=== PATIENT | female | born 1960 | race African-American/Black ===

== ENCOUNTER 2017-10-27 09:42 | Emergency (ER) | payer MEDICARE, OTHER ==
[2017-10-27 10:09] LABS: Hemoglobin 10.4 g/dL (12.0-16.0); Mean Corpuscular HGB CONC 33.5 g/dL (32.0-36.0); Mean Corpuscular Hemoglobin 29.9 pg (27.0-31.0); Mean Corpuscular Volume 89.4 fl (81.0-99.0); Platelet Count 123 thou/uL (130-400); Red Blood Cell (RBC) Count 3.47 mill/uL (4.20-5.40); White Blood Cell (WBC) Count 4.2 thou/uL (4.8-10.8)
[2017-10-27 10:24] LABS: #Lymphocytes 1.8 thou/uL (1.20-3.40); #Monocytes 0.4 thou/uL (0.11-0.59); #Neutrophils 1.9 thou/uL (1.40-6.50); %Eosinophils 0.7 % (0.0-10.0); %Lymphocytes 43.5 % (21.0-51.0); %Monocytes 10.5 % (0.0-10.0); %Neutrophils 45.3 % (42.0-75.0)
[2017-10-27 10:30] LABS: ALT (SGPT) 13 U/L (8-55); AST (SGOT) 20 U/L (5-34); Albumin 3.5 g/dL (3.5-5.0); Alkaline Phosphatase 126 U/L (40-150); Anion Gap 11 mmol/L (10-20); BUN (Urea Nitrogen) 12 mg/dL (9.8-20.1); Bilirubin, Total 1.5 mg/dL (0.2-1.2); CK (CPK) 50 U/L (29-168); Calc. Creatinine Clearance 0 mL/min (70-130); Calcium 9.8 mg/dL (7.8-10.44); Carbon Dioxide 26 mmol/L (22-29); Chloride 107 mmol/L (98-107); Estimated GFR-MDRD Greater than 90; Globulin 3.7 g/dL (2.4-3.5); Glucose 155 mg/dL (70-105); Potassium 3.6 mmol/L (3.5-5.1); Protein, Total 7.2 g/dL (6.0-8.3); Sodium 140 mmol/L (136-145)
[2017-10-27 10:32] LABS: CKMB 0.3 ng/mL (0-6.6); Troponin I Less than 0.010 ng/mL (< 0.028)
[2017-10-27] MEDS ORDERED: Lisinopril 10 MG TAB ONE (10:36)
[2017-10-27] MEDS ORDERED: Aspirin 325 MG TAB ONE (10:36)
[2017-10-27 10:39] LABS: PLT Morphology Comment Appears Adequate; RBC Morphology Normal
--- NOTE | 2017-10-27 10:53 | RAD ---
CHEST 1 VIEW: HISTORY: Chest pain. COMPARISON: 01/06/16. FINDINGS: Cardiac silhouette is magnified and upper limits of normal in size. Mediastinum midline with aortic calcification and postoperative changes. Calcified granulomata are consistent with healed granulomat ous disease. No lobar consolidation or evidence of pneumothorax. IMPRESSION: No active cardiopulmonary abnormalities are demonstrated. POS: [facility]
== END 2017-10-27 11:22 | disposition home or self-care (01) ==
LOC: ERS 09:42
DX: R06.02 Shortness of breath (principal); Z76.0 Encounter for issue of repeat prescription; F41.9 Anxiety disorder, unspecified; F32.9 Major depressive disorder, single episode, unspecified; E05.90 Thyrotoxicosis, unspecified without thyrotoxic crisis or storm; I10 Essential (primary) hypertension; Z79.82 Long term (current) use of aspirin; Z79.899 Other long term (current) drug therapy
CPT/HCPCS: 71045; 80053; 82550; 82553; 84443; 84484; 85025; 93005

== ENCOUNTER 2018-03-06 10:33 | Outpatient (CLI) | payer MEDICARE ==
--- NOTE | 2018-03-06 12:35 | ULT ---
ABDOMINAL ULTRASOUND: DATE: 03/06/2018. PROVIDED CLINICAL HISTORY: Nausea, vomiting, and periumbilical pain. FINDINGS: Visualized abdominal aorta, IVC, and pancreas appear normal. The liver demonstrates no mass or intra hepatic biliary ductal dilatation. The common duct is not evaluated. Multiple shadowing mobile echo genic foci are seen within the gallbladder lumen compatible with gallstones. No wall thickening or p ericholecystic fluid evident. Kidneys demonstrate no evidence for hydronephrosis or mass. The splee n is not enlarged and demonstrates no significant abnormality. IMPRESSION: Cholelithiasis. POS: [facility]
== END 2018-03-06 10:34 | disposition home or self-care (01) ==
LOC: BICULT 10:33
PROVIDERS: ATTEND Internal Medicine Gastroenterology
DX: R11.2 Nausea with vomiting, unspecified (principal); R10.33 Periumbilical pain; R63.4 Abnormal weight loss; K80.20 Calculus of gallbladder without cholecystitis without obstruction
CPT/HCPCS: 76700

== ENCOUNTER 2018-03-12 11:26 | Outpatient (CLI) | payer MEDICARE ==
[2018-03-12 14:25] LABS: Mean Corpuscular HGB CONC 32.4 g/dL (32.0-36.0); Mean Corpuscular Hemoglobin 29.3 pg (27.0-31.0); Mean Corpuscular Volume 90.5 fL (78.0-98.0); Mean Platelet Volume 9.3 fL (7.4-10.4); Platelet Count 192 thou/uL (130-400); RBC Distribution Width 12.4 % (11.5-14.5); Red Blood Cell (RBC) Count 4.08 mill/uL (4.20-5.40); White Blood Cell (WBC) Count 4.6 thou/uL (4.8-10.8)
[2018-03-12 14:37] LABS: ALT (SGPT) 9 U/L (8-55); AST (SGOT) 16 U/L (5-34); Albumin 4.1 g/dL (3.5-5.0); Alkaline Phosphatase 134 U/L (40-150); Anion Gap 12 mmol/L (10-20); BUN (Urea Nitrogen) 11 mg/dL (9.8-20.1); Bilirubin, Direct 0.4 mg/dL (0.1-0.3); Bilirubin, Total 1.1 mg/dL (0.2-1.2); Calc. Creatinine Clearance 0 mL/min (70-130); Calcium 9.8 mg/dL (7.8-10.44); Carbon Dioxide 29 mmol/L (22-29); Chloride 104 mmol/L (98-107); Estimated GFR-MDRD Greater than 90; Glucose 80 mg/dL (70-105); Potassium 3.5 mmol/L (3.5-5.1); Protein, Total 8.4 g/dL (6.0-8.3); Sodium 141 mmol/L (136-145)
[2018-03-12 15:13] LABS: Eosinophils 1 % (0-10); Lymphocytes 58 % (21-51); MDiff Complete? YES; Monocytes 7 % (0-10); Neutrophil 33 % (42-75); PLT Morphology Comment Appears Adequate; RBC Morphology Normal; Reactive Lymphocytes 1 % (0-10)
== END 2018-03-12 11:27 | disposition home or self-care (01) ==
LOC: LABBT 11:26
PROVIDERS: ATTEND Surgery
DX: Z01.818 Encounter for other preprocedural examination (principal); K80.20 Calculus of gallbladder without cholecystitis without obstruction
CPT/HCPCS: 80048; 80076; 85025; 93005; 93010

== ENCOUNTER 2018-03-19 09:23 | Day surgery (SDC) | payer MEDICARE ==
[2018-03-12 11:42] VITALS: BMI 23.3
[2018-03-19] MEDS ORDERED: CEFAZOLIN 2 GM/50 ML BAG ONE (10:03)
[2018-03-19] MEDS ORDERED: Bupivacaine/Epinephrine 0.25% 30 ML VIAL ONE (11:10)
[2018-03-19] MEDS ORDERED: Midazolam HCl 2 mg/2 ml Vial ONE (11:35)
[2018-03-19] MEDS ORDERED: Fentanyl 250 MCG/5 ML VIAL ONE (11:35)
[2018-03-19] MEDS ORDERED: HYDROcodone/Acetaminophen 5/325 mg Tablet ONE (14:18)
--- NOTE | 2018-03-19 21:50 | OP ---
DATE OF PROCEDURE: 03/19/2018 PREOPERATIVE DIAGNOSIS: Symptomatic gallstones. POSTOPERATIVE DIAGNOSIS: Symptomatic gallstones. PROCEDURE: Laparoscopic cholecystectomy. SURGEON: Nadeem Benjamin M.D. ANESTHESIA: General. ESTIMATED BLOOD LOSS: Minimal. COMPLICATIONS: None. SPECIMEN: None. FINDINGS: There were some significant adhesions in the area of the umbilicus. Care was taken to be sure there was no inadvertent enterotomy made at the end of the procedure. There was no obvious inju ry seen. TECHNIQUE: The patient was taken to the operating room and placed supine on the table. After genera l anesthetic was obtained, the abdomen was shaved, prepped, and draped in a sterile fashion. Curved incision made below the umbilicus. Cautery was used to dissect down to and score the fascia. Abdomi nal cavity entered bluntly using a Casandra clamp. Montoya trocar was placed and high flow pneumoperiton eum was obtained. An upper midline 5-mm port and 2 right upper quadrant 5-mm ports were placed under direct camera visualization. The gallbladder was extracted from the gallbladder fossa. The periton eum was opened anteriorly and posteriorly. Critical view triangle was seen showing only the cystic du ct and cystic artery branching from medial to lateral and no other branching structures. Two clips w ere placed proximally and one distally and cystic duct cut using laparoscopic scissors. Cystic arter y was taken in the same way. Cautery was then used to dissect the gallbladder out of the gallbladder fossa. Gallbladder was placed in an Endo catch bag and brought out through the Lucas. There were significant dense adhesions in the area of the umbilicus and the loop of small intestine was fused ju st below where the umbilical incision was made carefully. Sharp dissection was used to take down the small intestine in this area. It was dissected off the back side of the peritoneum revealing no obv ious enterotomy or injury. A finger was placed into the fascial opening again with no obvious injury to the intestine. There was no leakage of enteric contents. The PDS suture previously placed was t ied down under direct vision and did not appear to involve the wall of the small intestine either. A ll port sites are infiltrated using local anesthetic and removed under direct visualization without b leeding. All incisions were irrigated and closed using 4-0 Monocryl and Dermabond. The patient was en route to recovery in stable condition. All instrument counts, needle counts, lap counts were sis ect.
== END 2018-03-19 14:49 | disposition home or self-care (01) ==
LOC: SDC 09:23
PROVIDERS: ATTEND Surgery
PROC: 0FT44ZZ Resection of Gallbladder, Percutaneous Endoscopic Approach (ICD-10-PCS; principal; 2018-03-19)
DX: K80.10 Calculus of gallbladder with chronic cholecystitis without obstruction (principal); I50.9 Heart failure, unspecified; E05.90 Thyrotoxicosis, unspecified without thyrotoxic crisis or storm; I25.10 Atherosclerotic heart disease of native coronary artery without angina pectoris; I47.1 Supraventricular tachycardia; M32.9 Systemic lupus erythematosus, unspecified; Z95.1 Presence of aortocoronary bypass graft; Z79.82 Long term (current) use of aspirin; Z79.899 Other long term (current) drug therapy; Z88.5 Allergy status to narcotic agent
CPT/HCPCS: 88304; J2250; J3010

== ENCOUNTER 2023-02-01 16:07 | Observation (INO) | payer MEDICARE, SELFPAY ==
[2023-02-01 18:06] LABS: #Monocytes 0.4 thou/uL (0.11-0.59); #Neutrophils 5.3 thou/uL (1.40-6.50); %Basophils 0.1 % (0.0-1.0); %Eosinophils 0.1 % (0.0-10.0); %Lymphocytes 18.3 % (21.0-51.0); %Monocytes 5.7 % (0.0-10.0); %Neutrophils 75.7 % (42.0-75.0); Hematocrit 38.3 % (36.0-47.0); Hemoglobin 12.9 g/dL (12.0-16.0); Mean Corpuscular HGB CONC 33.7 g/dL (32.0-36.0); Mean Corpuscular Hemoglobin 31.6 pg (27.0-31.0); Mean Corpuscular Volume 93.9 fl (78.0-98.0); Mean Platelet Volume 11.5 fL (7.4-10.4); Platelet Count 169 10x3/uL (130-400); RBC Distribution Width 12.5 % (11.5-14.5); Red Blood Cell (RBC) Count 4.08 mill/uL (4.20-5.40); White Blood Cell (WBC) Count 7.1 10x3/uL (4.8-10.8)
[2023-02-01 18:32] LABS: ALT (SGPT) 7 U/L (8-55); AST (SGOT) 14 U/L (5-34); Alkaline Phosphatase 76 U/L (40-110); Anion Gap 13 mmol/L (10-20); BUN (Urea Nitrogen) 34 mg/dL (9.8-20.1); Bilirubin, Total 0.7 mg/dL (0.2-1.2); Calc. Creatinine Clearance 0 mL/min (70-130); Calcium 9.5 mg/dL (7.8-10.44); Carbon Dioxide 25 mmol/L (23-31); Chloride 103 mmol/L (98-107); Estimated GFR 25; Globulin 3.8 g/dL (2.4-3.5); Glucose 116 mg/dL (80-115); Magnesium 1.8 mg/dL (1.6-2.6); Potassium 4.4 mmol/L (3.5-5.1); Protein, Total 7.8 g/dL (5.8-8.1); Sodium 137 mmol/L (136-145)
[2023-02-01 18:37] LABS: Troponin I 0.014 ng/mL (< 0.028)
[2023-02-01] MEDS ORDERED: Ondansetron ODT 4 MG TAB PO PRN (21:14)
[2023-02-01] MEDS ORDERED: Acetaminophen 325 MG TAB PO PRN (21:14)
[2023-02-01] MEDS ORDERED: Ondansetron PF 4 MG/2 ML Vial IVP PRN (21:14)
[2023-02-01] MEDS ORDERED: Acetaminophen 650 MG Suppository PR PRN (21:14)
[2023-02-01 21:22] LABS: Troponin I 0.014 ng/mL (< 0.028)
[2023-02-01 23:27] VITALS: BMI 22.2
[2023-02-01] MEDS: Sodium Chloride 0.9% 1,000 ML IV SCH (23:50)
[2023-02-01] MEDS ORDERED: hydrALAZINE 20 MG/ML VIAL SLOW IVP PRN (23:56)
[2023-02-02 01:49] LABS: Troponin I 0.017 ng/mL (< 0.028)
[2023-02-02 05:11] LABS: #Monocytes 0.5 thou/uL (0.11-0.59); #Neutrophils 3.1 thou/uL (1.40-6.50); %Basophils 0.2 % (0.0-1.0); %Eosinophils 0.5 % (0.0-10.0); %Lymphocytes 38.4 % (21.0-51.0); %Monocytes 7.9 % (0.0-10.0); %Neutrophils 52.8 % (42.0-75.0); Hematocrit 33.8 % (36.0-47.0); Hemoglobin 11.3 g/dL (12.0-16.0); Mean Corpuscular HGB CONC 33.4 g/dL (32.0-36.0); Mean Corpuscular Hemoglobin 32.2 pg (27.0-31.0); Mean Corpuscular Volume 96.3 fl (78.0-98.0); Mean Platelet Volume 11.2 fL (7.4-10.4); Platelet Count 161 10x3/uL (130-400); RBC Distribution Width 12.6 % (11.5-14.5); Red Blood Cell (RBC) Count 3.51 mill/uL (4.20-5.40); White Blood Cell (WBC) Count 5.8 10x3/uL (4.8-10.8)
[2023-02-02 05:22] LABS: Bilirubin Negative (Negative); Blood, Urine Negative (Negative); Clarity Clear (Clear); Glucose, Urine (Dipstick) Normal (Negative); Ketone, Urine Negative (Negative); Leukocyte Negative Leu/uL (Negative); Nitrite Negative (Negative); Protein, Urine (Dipstick) Negative (Neg-Trace); RBC/HPF 0-3 HPF (0-3); Specific Gravity, Urine 1.013 (1.002-1.036); Squamous Epithelial 0-3 HPF (0-3); Urobilinogen Normal mg/dL (Less than 2); WBC/HPF 0-3 HPF (0-3)
[2023-02-02 05:23] LABS: Bacteria/HPF Rare-Few HPF (None Seen)
[2023-02-02 05:44] LABS: Anion Gap 10 mmol/L (10-20); BUN (Urea Nitrogen) 33 mg/dL (9.8-20.1); Calc. Creatinine Clearance 38 mL/min (70-130); Calcium 8.8 mg/dL (7.8-10.44); Carbon Dioxide 26 mmol/L (23-31); Chloride 107 mmol/L (98-107); Estimated GFR 37; Glucose 110 mg/dL (80-115); Potassium 3.9 mmol/L (3.5-5.1); Sodium 139 mmol/L (136-145)
[2023-02-02 08:25] VITALS: TEMP 97.7
[2023-02-02] MEDS ORDERED: Aspirin 325 MG TAB PO SCH (09:00)
[2023-02-02] MEDS: Sodium Chloride 0.9% 1,000 ML IV SCH (09:54)
[2023-02-02] MEDS ORDERED: Lidocaine 1% PF 5 ML VIAL ONE (13:05)
[2023-02-02] MEDS ORDERED: Lidocaine 1% w/Epinephrine 1:100K 20 ML VIAL ONE (13:08)
[2023-02-02 16:51] VITALS: BP 187/81
[2023-02-02] MEDS ORDERED: Atorvastatin Calcium 40 MG TAB PO SCH (21:00)
== END 2023-02-02 17:05 | disposition home or self-care (01) ==
LOC: ERS 16:07 → 2SW 19:53
PROVIDERS: ADMIT Student in an Organized Health Care Education/Training Program; ATTEND Internal Medicine
PROC: 0JH602Z Insertion of Monitoring Device into Chest Subcutaneous Tissue and Fascia, Open Approach (ICD-10-PCS; principal; 2023-02-01)
DX: R55 Syncope and collapse (principal); I11.0 Hypertensive heart disease with heart failure; I50.1 Left ventricular failure, unspecified; E03.9 Hypothyroidism, unspecified; R00.1 Bradycardia, unspecified; I44.7 Left bundle-branch block, unspecified; Z79.82 Long term (current) use of aspirin; Z79.899 Other long term (current) drug therapy; Z90.710 Acquired absence of both cervix and uterus; Z95.2 Presence of prosthetic heart valve; Z88.5 Allergy status to narcotic agent; Z90.721 Acquired absence of ovaries, unilateral
CPT/HCPCS: 33285; 70450; 71045; 80048; 80053; 81001; 83735; 84484 ×3; 85025 ×2; 93005; 93880; 96360; 96361; 96374; 99285; C1764; G0378 ×3; J0360; 36415; J7050

== ENCOUNTER 2023-11-30 13:37 | Day surgery (SDC) | payer MEDICARE ==
[2023-11-30] MEDS ORDERED: CEFAZOLIN 2 GM VIAL ONE (14:29)
[2023-11-30] MEDS ORDERED: Gentamicin 80 MG/2 ML VIAL ONE (14:29)
[2023-11-30] MEDS ORDERED: CEFAZOLIN 1 GM VIAL ONE (14:29)
[2023-11-30 14:55] LABS: #Basophils Less than 0.03 10x3/uL (0.0-0.2); %Basophils 0.2 % (0.0-1.0); %Eosinophils 3.1 % (0.0-10.0); %Monocytes 7.4 % (0.0-10.0); %Neutrophils 41.3 % (42.0-75.0); Hematocrit 40.7 % (36.0-47.0); Hemoglobin 13.5 g/dL (12.0-16.0); Mean Corpuscular HGB CONC 33.2 g/dL (32.0-36.0); Mean Corpuscular Hemoglobin 30.9 pg (27.0-31.0); Mean Corpuscular Volume 93.1 fL (78.0-98.0); Mean Platelet Volume 11.3 fL (7.4-10.4); Platelet Count 187 10x3/uL (130-400); RBC Distribution Width 13.5 % (11.5-14.5); Red Blood Cell (RBC) Count 4.37 mill/uL (4.20-5.40)
[2023-11-30 15:20] LABS: Anion Gap 15 mmol/L (10-20); BUN (Urea Nitrogen) 16 mg/dL (9.8-20.1); Calc. Creatinine Clearance 0 mL/min (70-130); Calcium 9.8 mg/dL (7.8-10.44); Carbon Dioxide 27 mmol/L (23-31); Chloride 103 mmol/L (98-107); Estimated GFR 76; Glucose 94 mg/dL (80-115); Potassium 4.9 mmol/L (3.5-5.1); Sodium 140 mmol/L (136-145)
[2023-11-30] MEDS ORDERED: Lidocaine 1% (PF) 30 ML VIAL ONE (15:44)
[2023-11-30] MEDS ORDERED: Midazolam HCl 2 mg/2 ml Vial ONE (15:44)
[2023-11-30] MEDS ORDERED: hydrALAZINE 20 MG/ML VIAL ONE (15:57)
== END 2023-11-30 20:45 | disposition home or self-care (01) ==
LOC: SDC 13:37
PROVIDERS: ATTEND Internal Medicine Cardiovascular Disease
PROC: 0JH606Z Insertion of Pacemaker, Dual Chamber into Chest Subcutaneous Tissue and Fascia, Open Approach (ICD-10-PCS; principal; 2023-11-30)
DX: I44.2 Atrioventricular block, complete (principal); I48.92 Unspecified atrial flutter; I11.0 Hypertensive heart disease with heart failure; I50.30 Unspecified diastolic (congestive) heart failure; I44.7 Left bundle-branch block, unspecified; R00.1 Bradycardia, unspecified; E03.9 Hypothyroidism, unspecified; M32.10 Systemic lupus erythematosus, organ or system involvement unspecified; D64.9 Anemia, unspecified; Z90.710 Acquired absence of both cervix and uterus; Z98.890 Other specified postprocedural states; Z88.5 Allergy status to narcotic agent; Z79.82 Long term (current) use of aspirin; Z79.899 Other long term (current) drug therapy
CPT/HCPCS: 33208; 33286; 71045; 80048; 85025; C1785; C1898 ×2; J0360; J0690; J1580; J2001; J2250; 99152; 99153

== ENCOUNTER 2024-01-27 19:02 | Inpatient (IN) | payer MEDICARE ==
[2024-01-27 19:38] VITALS: BMI 25.7
[2024-01-27] MEDS ORDERED: Ondansetron PF 4 MG/2 ML Vial IVP PRN (20:28)
[2024-01-27] MEDS ORDERED: Ondansetron ODT 4 MG TAB PO PRN (20:28)
[2024-01-27] MEDS ORDERED: Acetaminophen 650 MG Suppository PR PRN (20:28)
[2024-01-27] MEDS: Lisinopril 20 MG TAB PO SCH (21:10)
[2024-01-27] MEDS: Famotidine 20 MG TAB PO SCH (21:10)
[2024-01-27] MEDS: Acetaminophen 325 MG TAB PO PRN (21:10)
[2024-01-27] MEDS: Atorvastatin Calcium 40 MG TAB PO SCH (21:10)
[2024-01-27] MEDS: Famotidine/PF 20 mg/2ml Vial SLOW IVP SCH (21:11)
[2024-01-27 21:42] LABS: #Basophils Less than 0.03 10x3/uL (0.0-0.2); %Basophils 0.1 % (0.0-1.0); %Lymphocytes 37.9 % (21.0-51.0); %Monocytes 5.2 % (0.0-10.0); %Neutrophils 55.5 % (42.0-75.0); Hematocrit 38.5 % (36.0-47.0); Hemoglobin 12.9 g/dL (12.0-16.0); Mean Corpuscular HGB CONC 33.5 g/dL (32.0-36.0); Mean Corpuscular Hemoglobin 30.6 pg (27.0-31.0); Mean Corpuscular Volume 91.2 fL (78.0-98.0); Platelet Count 172 10x3/uL (130-400); RBC Distribution Width 13.4 % (11.5-14.5); Red Blood Cell (RBC) Count 4.22 mill/uL (4.20-5.40)
[2024-01-27 22:01] LABS: Anion Gap 14 mmol/L (10-20); BUN (Urea Nitrogen) 16 mg/dL (9.8-20.1); Calc. Creatinine Clearance 67 mL/min (70-130); Calcium 9.3 mg/dL (7.8-10.44); Carbon Dioxide 26 mmol/L (23-31); Chloride 104 mmol/L (98-107); Estimated GFR 63; Glucose 152 mg/dL (80-115); Magnesium 1.7 mg/dL (1.6-2.6); Potassium 3.8 mmol/L (3.5-5.1); Sodium 140 mmol/L (136-145)
[2024-01-28 04:08] LABS: ALT (SGPT) 10 U/L (8-55); AST (SGOT) 16 U/L (5-34); Albumin 3.2 g/dL (3.4-4.8); Alkaline Phosphatase 98 U/L (40-110); Anion Gap 15 mmol/L (10-20); BUN (Urea Nitrogen) 18 mg/dL (9.8-20.1); Bilirubin, Total 0.6 mg/dL (0.2-1.2); Calc. Creatinine Clearance 69 mL/min (70-130); Carbon Dioxide 25 mmol/L (23-31); Chloride 105 mmol/L (98-107); Estimated GFR 65; Globulin 3.9 g/dL (2.4-3.5); Glucose 101 mg/dL (80-115); Potassium 3.6 mmol/L (3.5-5.1); Protein, Total 7.1 g/dL (5.8-8.1); Sodium 141 mmol/L (136-145)
[2024-01-28] MEDS ORDERED: Cyanocobalamin (Vitamin B-12) 1,000 MCG TAB PO SCH (09:00)
[2024-01-28] MEDS: Aspirin 81 mg Enteric Coated Tablet PO SCH (09:14)
[2024-01-28] MEDS: Amlodipine 10 MG TAB PO SCH (09:14)
[2024-01-28] MEDS: Escitalopram Oxalate 10 mg Tablet PO SCH (09:15)
[2024-01-28] MEDS: Multivitamin W/ Minerals 1 TAB PO SCH (09:16)
[2024-01-29 12:09] VITALS: TEMP 97.9
[2024-01-29 15:36] VITALS: BP 124/55
== END 2024-01-29 14:50 | disposition home or self-care (01) | DRG 312 ==
LOC: 2SW 19:02 → OBSVTOIN 01-29 13:23
PROVIDERS: ADMIT Internal Medicine; ATTEND Internal Medicine
PROC: 4A00X4Z Measurement of Central Nervous Electrical Activity, External Approach (ICD-10-PCS; principal; 2024-01-28)
DX: R55 Syncope and collapse (principal); I44.2 Atrioventricular block, complete; I48.92 Unspecified atrial flutter; I50.32 Chronic diastolic (congestive) heart failure; R32 Unspecified urinary incontinence; M32.9 Systemic lupus erythematosus, unspecified; E05.90 Thyrotoxicosis, unspecified without thyrotoxic crisis or storm; Z90.49 Acquired absence of other specified parts of digestive tract; Z90.710 Acquired absence of both cervix and uterus; Z98.890 Other specified postprocedural states; Z95.0 Presence of cardiac pacemaker; Z88.5 Allergy status to narcotic agent; Z79.82 Long term (current) use of aspirin; Z79.899 Other long term (current) drug therapy
CPT/HCPCS: 36415; 70551; 80053; 83735; 95816; 95819; 96374; G0378; J3490

== ENCOUNTER 2024-02-12 11:52 | Outpatient (CLI) | payer MEDICARE | END 2024-02-12 11:53 | disposition home or self-care (01) | LOC: ULT 11:52 | PROVIDERS: ATTEND Family Medicine | DX: R55 Syncope and collapse (principal) | CPT/HCPCS: 70450; 93880 ==